=== PATIENT | male | born 1990 | race Caucasian/White ===

== ENCOUNTER 2019-08-13 17:20 | Emergency (ER) | payer MEDICAID ==
[~2019-08-13] VITALS: Ht 167.6 cm; Wt 63.6 kg
[2019-08-13 17:23] VITALS: Ht 167.6 cm; Wt 63.6 kg
[2019-08-13 17:45] LABS: BASOPHILS 0.2 % (0-2); EOSINOPHILS 1.5 % (0-7); HEMATOCRIT 41.7 % (42.0-54.0); HEMOGLOBIN 14.8 g/dL (13.5-17.5); IMMATURE GRANULOCYTES 0.2 % (0-5); LYMPHOCYTES 17.1 % (15-50); MCH 30.1 pg (26.0-34.0); MCHC 35.5 g/dL (31.0-37.0); MCV 84.8 fL (80.0-100.0); MEAN PLATELET VOLUME 10.2 fL (7.4-10.4); MONOCYTES 11.4 % (2-11); NEUTROPHILS 69.6 % (40-80); PLATELET COUNT 296 10x3/uL (130-400); RBC 4.92 10x6/uL (4.20-6.10); RDW 12.4 % (11.5-14.5); WBC 9.9 10x3/uL (4.8-10.8)
[2019-08-13 17:57] LABS: ALBUMIN 4.1 g/dL (3.4-5.0); ALKALINE PHOSPHATASE 62 U/L (46-116); ALT (SGPT) 18 U/L (10-68); BILIRUBIN - TOTAL 0.81 mg/dL (0.2-1.3); CALC OSMOLALITY 279 mosm/kg (275-300); CALCIUM 8.8 mg/dL (8.5-10.1); CARBON DIOXIDE 30.2 mmol/L (21.0-32.0); CHLORIDE - SERUM 103 mmol/L (98-107); GLUCOSE 91 mg/dL (74-106); POTASSIUM - SERUM 3.4 mmol/L (3.5-5.1); PROTEIN - SERUM 7.6 g/dL (6.4-8.2); SODIUM 141 mmol/L (136-145); UREA NITROGEN 10 mg/dL (7-18); eGFR NON AFRICAN AMERICAN > 90 mL/min (90-120)
[2019-08-13] MEDS ORDERED: CLEOCIN HCL300 MG PO (19:38)
[2019-08-13] MEDS ORDERED: TORADOL10 MG PO (19:38)
[2019-08-13 20:01] VITALS: BP 130/80
== END 2019-08-13 20:01 | disposition home or self-care (01) ==
LOC: D.ER 17:20
PROVIDERS: Emergency Medicine
DX: L03.114 Cellulitis of left upper limb (principal)